=== PATIENT | female | born 1970 | race African-American/Black ===

== ENCOUNTER 2016-08-30 09:07 | Emergency (ER) | payer BC ==
[2016-08-30] MEDS ORDERED: DIPHENHYDRAMINE 50 MG/ML VIAL ONE (09:33)
[2016-08-30] MEDS ORDERED: KETOROLAC 30 MG/ML VIAL ONE (09:33)
[2016-08-30] MEDS ORDERED: SODIUM CHLORIDE 0.9% 1,000 ML ONE (09:33)
[2016-08-30] MEDS ORDERED: SODIUM CHLORIDE 0.9% 50 ML IV ONE (09:33)
[2016-08-30] MEDS ORDERED: METOCLOPRAMIDE 10 MG/2 ML VIAL ONE (09:33)
[2016-08-30] MEDS ORDERED: DILAUDID 1 MG/ML AMP ONE (11:50)
== END 2016-08-30 13:16 | disposition home or self-care (01) ==
LOC: ER 09:07
DX: R51 Headache (principal); I25.2 Old myocardial infarction; Z79.82 Long term (current) use of aspirin
CPT/HCPCS: 70450; 96361; 96365; 96375